=== PATIENT | female | born 1975 | race Hispanic/Latino ===

== ENCOUNTER 2023-05-22 18:54 | Emergency (ER) | payer BC ==
[~2023-05-22] VITALS: Ht 162.6 cm; Wt 80.3 kg
[2023-05-22] MEDS ORDERED: 0.9%NACL 1000ML 1,000 ML IV ONE (20:30)
[2023-05-22] MEDS ORDERED: KETOROLAC 15MG/ML VIAL (15MG/ML) IV ONE (20:30)
[2023-05-22] MEDS ORDERED: FAMOTIDINE 20MG VIAL IV ONE (20:30)
[2023-05-22] MEDS ORDERED: ONDANSETRON 4MG INJ IVP ONE (20:30)
[2023-05-22 21:10] LABS: BASOPHILS # (AUTO) 0.04 K/uL (0.00-0.20); BASOPHILS % (AUTO) 0.3 % (0.0-5.0); EOSINOPHILS # (AUTO) 0.08 K/uL (0.00-0.70); EOSINOPHILS % (AUTO) 0.6 % (0.0-8.0); HEMATOCRIT 39.3 % (36-48); IMMATURE GRANULOCYTE ABSOLUTE 0.08 K/uL (0-1); LYMPHOCYTES # (AUTO) 2.4 K/uL (1.0-4.8); LYMPHOCYTES % (AUTO) 17.3 % (21.0-51.0); MEAN CORPUSCULAR HEMOGLOBIN 29.5 pg (27.0-33.0); MEAN CORPUSCULAR HGB CONC 33.8 g/dL (32.0-36.0); MEAN CORPUSCULAR VOLUME 87.1 fL (79-99); MONOCYTES # (AUTO) 1.1 K/uL (0.1-1.0); MONOCYTES % (AUTO) 8.1 % (3.0-13.0); NEUTROPHILS % (AUTO) 73.1 % (40.0-77.0); PLATELET COUNT (AUTO) 322 K/uL (130-400); RED BLOOD CELL COUNT(AUTO) 4.51 MIL/uL (4.00-5.50); RED CELL DISTRIBUTION WIDTH 12.9 % (11.0-15.5); WHITE BLOOD COUNT (AUTO) 13.7 K/uL (4.8-10.8)
[2023-05-22 21:16] LABS: CREATININE 0.7 mg/dL (0.5-1.5); POTASSIUM 3.6 mmol/L (3.5-5.1)
[2023-05-22 21:20] LABS: APPEARANCE,URINE CLEAR (CLEAR); BILIRUBIN,URINE NEGATIVE (NEGATIVE); COLOR,URINE LIGHT-YELLOW (YELLOW); GLUCOSE, URINE (UA) NEGATIVE (NEGATIVE); KETONES,URINE NEGATIVE (NEGATIVE); LEUKOCYTE ESTERASE ,URINE NEGATIVE Leu/uL (NEGATIVE); NITRATE,URINE NEGATIVE (NEGATIVE); OCCULT BLOOD,URINE NEGATIVE (NEGATIVE); PH,URINE 6.5 (5.0-8.0); PROTEIN,URINE NEGATIVE (NEGATIVE); UROBILINOGEN,URINE 0.2 mg/dL (0.2-1.0)
[2023-05-22 21:21] LABS: ALBUMIN 3.8 g/dL (3.5-5.0); BILIRUBIN,TOTAL 0.4 mg/dL (0.2-1.0); TOTAL PROTEIN, SERUM 7.6 g/dL (6.0-8.3)
[2023-05-22 21:26] LABS: ADD UA MICROSCOPIC YES
[2023-05-22 21:37] LABS: BACTERIA,URINE RARE /HPF (None Seen); SQUAMOUS EPITHELIAL CELL,UR FEW /HPF (0-2)
[2023-05-22] MEDS ORDERED: DICYCLOMINE HCL 10 MG/5 ML ML PO ONE (23:00)
[2023-05-22] MEDS ORDERED: LIDOCAINE HCL 2% VISCOUS 15 ML UDCUP PO ONE (23:00)
[2023-05-22] MEDS ORDERED: MAG/ALUM/SIMETH 30 ML UDCUP PO ONE (23:00)
[2023-05-22] MEDS ORDERED: IOHEXOL 350 MG/ML 100ML INFUS..BTL IV ONE (23:13)
[2023-05-23] MEDS ORDERED: METRONIDAZOLE 500 MG TABLET PO SCH
[2023-05-23] MEDS ORDERED: LEVOFLOXACIN 500 MG TABLET PO SCH
[2023-05-23] MEDS ORDERED: IBUP-2070 PO (00:01)
[2023-05-23] MEDS ORDERED: ONDA4TAB10 PO (00:01)
[2023-05-23] MEDS ORDERED: METR-172 PO (00:01)
[2023-05-23] MEDS ORDERED: FAMO20TA8 PO (00:01)
[2023-05-23] MEDS ORDERED: CIPR-278 PO (00:01)
[2023-05-23 00:30] VITALS: BP 136/74; PULSE 88; RESP 18; O2SAT 99
== END 2023-05-23 00:31 | disposition home or self-care (01) ==
LOC: EDH 18:54
DX: K57.32 Diverticulitis of large intestine without perforation or abscess without bleeding (principal); Z90.49 Acquired absence of other specified parts of digestive tract; Z90.710 Acquired absence of both cervix and uterus
CPT/HCPCS: 99284; 74177; 96374; 96361; 96375; 80053; 83690; 85025; 81001; 81025; 36415; J3490; J7030; J2405; J1885; Q9967

== ENCOUNTER → 2024-12-24 | Outpatient (CLI) | payer BC ==
[~2024-12-24] MED LIST: CIPR-278 PO; FAMO20TA8 PO; IBUP-2070 PO; IOHEXOL-350 75 ML VIAL IV ONE; METR-172 PO; ONDA-243 PO
--- NOTE | 2024-12-24 11:41 | HMCIMG ---
CT ABDOMEN/PELVIS W/CONTRAST HISTORY: Diverticulitis COMPARISON: 05/22/2023 TECHNIQUE: Multiple sequential axial images of the abdomen and pelvis were obtained from the dome of the diaphragm through symphysis pubis. Patient was given 75 cc of Omnipaque through intravenous route. Oral contrast was given. FINDINGS: No pleural effusion is seen bilaterally. There is no evidence of parenchymal disease or pulmonary nodule of the visualized lower lungs. Degenerative changes of the thoracolumbar spine are present. The heart is not enlarged. Liver is borderline enlarged measuring 16 cm. Postcholecystectomy changes are seen. There is diverticulosis. Nonspecific sigmoid colon wall thickening. The liver, spleen, adrenal glands and pancreas are unremarkable. There is no evidence of hydronephrosis bilaterally. No evidence of renal stone is seen. Fecal material is seen in the colon. There are normal size retroperitoneal and mesenteric lymph nodes. No ascites is seen. Atherosclerotic changes are present. Pelvic sidewalls are symmetric bilaterally. Bladder is well distended without wall thickening. IMPRESSION: 1. Diverticulosis. No bowel obstruction is seen. Nonspecific sigmoid colon wall thickening is seen with early diverticulitis not excluded. No focal abscess is seen. CT was performed with one or more following dose reduction techniques: automated exposure control, adjustment of the mA and kv according to patient's size, or use of a iterative reconstruction technique.
== END | disposition home or self-care (01) ==
LOC: RAH 08:43
PROVIDERS: ATTEND Surgery
DX: K57.30 Diverticulosis of large intestine without perforation or abscess without bleeding (principal); K57.32 Diverticulitis of large intestine without perforation or abscess without bleeding; M47.815 Spondylosis without myelopathy or radiculopathy, thoracolumbar region; Z90.49 Acquired absence of other specified parts of digestive tract; R19.5 Other fecal abnormalities; I70.90 Unspecified atherosclerosis
CPT/HCPCS: 74177; Q9967

== ENCOUNTER → 2025-03-29 | Outpatient (CLI) | payer BC ==
[~2025-03-29] MED LIST changes: +DIATR MEGLU/DIATRIZOATE SODIUM 30 ML BOTTLE ONE; +IBUP-1492 PO; -IBUP-2070 PO; -IOHEXOL-350 75 ML VIAL IV ONE
--- NOTE | 2025-03-29 11:21 | HMCIMG ---
COMPARISON: None Available FLUOROSCOPY TIME: 0.8 minute TECHNIQUE: A single contrast Gastrografin enema was performed. The entire colon was coated with barium adequately and distended with air. FINDINGS: All colonic segments are well visualized. There are no strictures, masses, or polyps identified. Occasional diverticulosis. The terminal ileum was seen to reflux with contrast. The appendix is identified. IMPRESSION: 1. Unremarkable single contrast Gastrografin enema 2. Occasional diverticulosis
== END | disposition home or self-care (01) ==
LOC: RAH 07:29
PROVIDERS: ATTEND Surgery
DX: K57.30 Diverticulosis of large intestine without perforation or abscess without bleeding (principal); Z93.2 Ileostomy status
CPT/HCPCS: 74270; Q9963